=== PATIENT | female | born 1985 | race Two or more races ===

== ENCOUNTER 2020-06-03 21:17 | Emergency (ER) | payer MEDICAID ==
[~2020-06-03] VITALS: Ht 170.2 cm; Wt 63.0 kg
[2020-06-03 21:21] VITALS: BP 141/82
[2020-06-03] MEDS ORDERED: CLONAZEPAM 1MG TABLET PO ONE (23:00)
== END 2020-06-03 23:23 | disposition home or self-care (01) ==
LOC: ER 21:17
DX: F41.9 Anxiety disorder, unspecified (principal); Z76.0 Encounter for issue of repeat prescription
CPT/HCPCS: 99283

== ENCOUNTER 2020-10-27 14:09 | Emergency (ER) | payer MEDICAID ==
[~2020-10-27] VITALS: Ht 170.2 cm; Wt 64.0 kg
[2020-10-27 14:12] VITALS: BP 146/95
[2020-10-27] MEDS ORDERED: LORAZEPAM 0.5MG TABLET PO ONE (14:30)
== END 2020-10-27 14:48 | disposition home or self-care (01) ==
LOC: ER 14:09
DX: F41.1 Generalized anxiety disorder (principal); Z76.0 Encounter for issue of repeat prescription
CPT/HCPCS: 99283